=== PATIENT | male | born 1995 ===

== ENCOUNTER 2021-06-17 01:20 | Emergency (ER) | payer SELFPAY ==
[2021-06-17 01:37] VITALS: BP 90/61
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
== END 2021-06-17 02:35 ==
LOC: ED 01:20
DX: Z02.89 Encounter for other administrative examinations (principal)
CPT/HCPCS: 99282